=== PATIENT | female | born 1970 | race Caucasian/White ===

== ENCOUNTER 2023-01-01 06:48 | Day surgery (SDC) | payer OTHER ==
[2022-12-31 09:26] VITALS: BMI 43.8
--- NOTE | 2023-01-01 07:02 | P.GSHP ---
History of Present Illness H&P Date: 01/01/23 CHIEF COMPLAINT: GERD and colon screen HISTORY OF PRESENT ILLNESS: The patient is a 52-year-old female who presents with gastroesophageal reflux disease and need for colon screen. Upper and lower endoscopy were offered for further evaluation and management. PAST MEDICAL HISTORY: Please see list. PAST SURGICAL HISTORY: Please see list. MEDICATIONS: Please see list. ALLERGIES: Please see list. SOCIAL HISTORY: No illicit drug use FAMILY HISTORY: No reports of Crohn disease or ulcerative colitis. REVIEW OF ORGAN SYSTEMS: CONSTITUTIONAL: No reports of fevers or chills. GI: Denies any blood in stools or constipation. PHYSICAL EXAM: VITAL SIGNS: Stable GENERAL: Well-developed pleasant in no acute distress. HEENT: No scleral icterus. Extraocular movements grossly intact. Moist buccal mucosa. NECK: Supple without lymphadenopathy. CHEST: Unlabored respirations. Equal bilateral excursions. CARDIOVASCULAR: Regular rate and rhythm. Distal 2+ pulses. ABDOMEN: Soft, nondistended. MUSCULOSKELETAL: No clubbing, cyanosis, or edema. ASSESSMENT: 1. Gastroesophageal reflux disease 2. Colon screen. PLAN: 1. Recommend proceeding with an upper and lower endoscopy Past Medical History Past Medical History: Diabetes Mellitus, Hyperlipidemia, Hypertension Additional Past Medical History / Comment(s): SEASONAL ALLERGIES History of Any Multi-Drug Resistant Organisms: None Reported Past Surgical History: Cholecystectomy, Hernia Repair, Orthopedic Surgery, Uterine Ablation Additional Past Surgical History / Comment(s): RT foot surgery, BILAT carpal tunnel, Past Anesthesia/Blood Transfusion Reactions: Previous Problems w/ Anesthesia Additional Past Anesthesia/Blood Transfusion Reaction / Comment(s): HAD TOTAL BODY PAIN FOR DAYS AFTER UTERINE ABLATION 13 YEARS AGO Smoking Status: Former smoker - Past Family History Father Family Medical History: Cancer Mother Family Medical History: Cancer Medications and Allergies Home Medications Medication Instructions Recorded Confirmed Type ALPRAZolam [Xanax] 0.25 mg PO DAILY PRN 12/31/22 12/31/22 History Cholecalciferol [Vitamin D3 (25 100 mcg PO DAILY 12/31/22 12/31/22 History Mcg = 1000 Iu)] Escitalopram [Lexapro] 10 mg PO HS 12/31/22 12/31/22 History Loratadine [Claritin] 10 mg PO DAILY 12/31/22 12/31/22 History Meloxicam [Mobic] 15 mg PO DAILY 12/31/22 12/31/22 History Montelukast [Singulair] 10 mg PO HS 12/31/22 12/31/22 History Multivit with Calcium,Iron,Min 1 each PO DAILY 12/31/22 12/31/22 History [Women's Multivitamin] Olmesartan/Hydrochlorothiazide 1 each PO DAILY 12/31/22 12/31/22 History [Benicar Hct 40-12.5 mg Tablet] [place]-3/Dha/Epa/Fish Oil [Fish Oil 1 each PO DAILY 12/31/22 12/31/22 History 1,000 mg Softgel] Pioglitazone [Actos] 30 mg PO DAILY 12/31/22 12/31/22 History Rosuvastatin [Crestor] 20 mg PO HS 12/31/22 12/31/22 History metFORMIN HCL 1,000 mg PO BID 12/31/22 12/31/22 History sitaGLIPtin [Januvia] 100 mg PO DAILY 12/31/22 12/31/22 History Allergies Allergy/AdvReac Type Severity Reaction Status Date / Time No Known Allergies Allergy Verified 12/31/22 09:08
[2023-01-01] MEDS ORDERED: LACTATED RINGERS 1,000 ML IV SCH (07:10)
[2023-01-01] MEDS ORDERED: PROPOFOL 10 MG/ML 20 ML VIAL IV ONE (07:28)
[2023-01-01 07:29] LABS: Glucose,Whole Blood 132 mg/dL (70-110)
[2023-01-01] MEDS: LACTATED RINGERS 1,000 ML IV ONE ×2 (07:30→07:52)
[2023-01-01 07:32] VITALS: RESP 16; TEMP 97.6
--- NOTE | 2023-01-01 07:45 | P.PCN ---
Date of Procedure: 01/01/23 Description of Procedure: PREOPERATIVE DIAGNOSIS: Gastroesophageal reflux disease. Morbid obesity. POSTOPERATIVE DIAGNOSIS: Gastroesophageal reflux disease. Morbid obesity. Gastritis. Acute gastric ulcers OPERATION: Esophagogastroduodenoscopy with biopsies along the esophagus, antrum and duodenum SURGEON: Emelina Myers MD ANESTHESIA: MAC. INDICATIONS: The patient is a 52-year-old female who presents with reflux disease. Benefits and risks of the procedure were described. Informed consent was obtained. DESCRIPTION: The patient was brought into the endoscopy suite and laid in the left lateral decubitus position. An Olympus gastroscope was passed along the posterior oropharynx down to the distal esophagus where the squamocolumnar junction was encountered at 39 cm from the incisors. The stomach was entered and no bile reflux was found. Additional findings are listed below. Biopsies with cold forceps were obtained of the antrum. The first through third portion of the duodenum was examined. Retroflexion of the scope confirmed Hill grade 2 lower esophageal valve. The squamocolumnar junction demonstrated LA grade B erosive esophagitis. The stomach was desufflated. The patient tolerated the procedure well. FINDINGS: Squamocolumnar junction 39 cm from the incisors. Diaphragmatic hiatus at 39 cm. Hill grade 2 lower esophageal valve. LA grade A erosive esophagitis. Biopsies obtained Biopsies obtained of the duodenum. Chronic gastritis with biopsies obtained. RECOMMENDATIONS: Upper endoscopy as needed. Omeprazole and Carafate 2-4 weeks for acute gastric ulcer
--- NOTE | 2023-01-01 08:13 | P.PCN ---
Date of Procedure: 01/01/23 Description of Procedure: PREOPERATIVE DIAGNOSIS: Colonoscopy screening. POSTOPERATIVE DIAGNOSIS: Colonoscopy screening. Descending colon colitis OPERATION: Colonoscopy with cold forceps biopsies Colonoscopy to the cecum, ileocecal valve and appendiceal orifice. SURGEON: Emelina Myers MD. ANESTHESIA: MAC. INDICATIONS: The patient is a 52-year-old female who presents for colonoscopy screening. Benefits and risks were described and informed consent was obtained. DESCRIPTION OF PROCEDURE: The patient had undergone Sutab prep. The patient had been brought into the operating room and laid in the left lateral decubitus position. After adequate intravenous sedation, the rectum was examined with 2% lidocaine jelly. No external hemorrhoids were encountered. The rectal tone was within normal limits. No lesions were palpated in the rectal vault. An Olympus colonoscope was advanced until the cecum, ileocecal valve and appendiceal orifice were clearly viewed. The prep was excellent. Scattered diverticulosis was encountered. No colonic polyps were found. Ascending colitis was identified with biopsies obtained. Retroflexion of the scope demonstrated grade 2 internal hemorrhoids without active bleeding or inflammation. The colon was desufflated. The patient had tolerated the procedure well. Withdrawal time was over 6 minutes. FINDINGS: Aronchick preparation quality scale 1 (1-5) Internal hemorrhoids, grade 1 No external prolapsed hemorrhoids. No arteriovenous malformations. No adenomatous polyps. Descending colitis with biopsies obtained. RECOMMENDATIONS: Lower endoscopy in 5 years, 2027 Plan - Discharge Summary Discharge Rx Participant: No New Discharge Prescriptions: New Omeprazole [PriLOSEC] 40 mg PO DAILY #14 cap Sucralfate [Carafate] 1 gm PO BID #30 tablet Continue ALPRAZolam [Xanax] 0.25 mg PO DAILY PRN PRN Reason: Anxiety Pioglitazone [Actos] 30 mg PO DAILY Loratadine [Claritin] 10 mg PO DAILY Escitalopram [Lexapro] 10 mg PO HS Cholecalciferol [Vitamin D3 (25 Mcg = 1000 Iu)] 100 mcg PO DAILY metFORMIN HCL 1,000 mg PO BID Olmesartan/Hydrochlorothiazide [Benicar Hct 40-12.5 mg Tablet] 1 each PO DAILY sitaGLIPtin [Januvia] 100 mg PO DAILY Montelukast [Singulair] 10 mg PO HS Rosuvastatin [Crestor] 20 mg PO HS [place]-3/Dha/Epa/Fish Oil [Fish Oil 1,000 mg Softgel] 1 each PO DAILY Multivit with Calcium,Iron,Min [Women's Multivitamin] 1 each PO DAILY Discontinued Meloxicam [Mobic] 15 mg PO DAILY Discharge Medication List ALPRAZolam [Xanax] 0.25 mg PO DAILY PRN 12/31/22 [History] Cholecalciferol [Vitamin D3 (25 Mcg = 1000 Iu)] 100 mcg PO DAILY 12/31/22 [History] Escitalopram [Lexapro] 10 mg PO HS 12/31/22 [History] Loratadine [Claritin] 10 mg PO DAILY 12/31/22 [History] Montelukast [Singulair] 10 mg PO HS 12/31/22 [History] Multivit with Calcium,Iron,Min [Women's Multivitamin] 1 each PO DAILY 12/31/22 [History] Olmesartan/Hydrochlorothiazide [Benicar Hct 40-12.5 mg Tablet] 1 each PO DAILY 12/31/22 [History] [place]-3/Dha/Epa/Fish Oil [Fish Oil 1,000 mg Softgel] 1 each PO DAILY 12/31/22 [History] Pioglitazone [Actos] 30 mg PO DAILY 12/31/22 [History] Rosuvastatin [Crestor] 20 mg PO HS 12/31/22 [History] metFORMIN HCL 1,000 mg PO BID 12/31/22 [History] sitaGLIPtin [Januvia] 100 mg PO DAILY 12/31/22 [History] Omeprazole [PriLOSEC] 40 mg PO DAILY #14 cap 01/01/23 [Rx] Sucralfate [Carafate] 1 gm PO BID #30 tablet 01/01/23 [Rx] Follow up Appointment(s)/Referral(s): Emelina Myers MD [STAFF PHYSICIAN] - 02/03/23 1:00 pm Patient Instructions/Handouts: Microscopic Colitis (DC), Peptic Ulcer (DC) Activity/Diet/Wound Care/Special Instructions: Repeat colonoscopy in 5 years, 2027 Discharge Disposition: HOME SELF-CARE
[2023-01-01 10:40] VITALS: BP 103/74; PULSE 82
== END 2023-01-01 08:47 | disposition home or self-care (01) ==
LOC: ORWHC2ENDO 06:48
PROVIDERS: ATTEND Surgery Plastic and Reconstructive Surgery
DX: Z12.11 Encounter for screening for malignant neoplasm of colon (principal); K29.50 Unspecified chronic gastritis without bleeding; K21.00 Gastro-esophageal reflux disease with esophagitis, without bleeding; K25.3 Acute gastric ulcer without hemorrhage or perforation; K22.10 Ulcer of esophagus without bleeding; K64.0 First degree hemorrhoids; K52.89 Other specified noninfective gastroenteritis and colitis; E11.9 Type 2 diabetes mellitus without complications; E66.01 Morbid (severe) obesity due to excess calories; E78.5 Hyperlipidemia, unspecified; I10 Essential (primary) hypertension; Z90.49 Acquired absence of other specified parts of digestive tract; Z98.890 Other specified postprocedural states; G56.03 Carpal tunnel syndrome, bilateral upper limbs; Z87.891 Personal history of nicotine dependence; Z79.1 Long term (current) use of non-steroidal anti-inflammatories (NSAID); Z79.84 Long term (current) use of oral hypoglycemic drugs; Z79.899 Other long term (current) drug therapy; Z68.41 Body mass index [BMI] 40.0-44.9, adult
CPT/HCPCS: 81025; 88305; 45380; 43239; J2704

== ENCOUNTER → 2024-08-01 | Outpatient (CLI) | payer OTHER ==
--- NOTE | 2024-08-01 14:05 | XR ---
EXAMINATION TYPE: XR lumbar spine 2 or 3V DATE OF EXAM: 08/01/2024 CLINICAL HISTORY: M51.632 TECHNIQUE: Three views of the lumbar spine are submitted. COMPARISON: MRI lumbar spine 09/24/2015 FINDINGS: There are 5 lumbar type vertebral bodies identified. The lumbar spine shows satisfactory alignment w ithout evidence of acute fracture or dislocation. Vertebral body heights are within normal limits. Multilevel disc space narrowing with endplate sclerosis. Most pronounced at L5-S1. Multilevel facet a rthropathy. The overlying soft tissue appears unremarkable. IMPRESSION: 1. No acute fracture or dislocation is seen in the lumbar spine. 2. Mild multilevel degenerative disc disease with moderate multilevel facet arthropathy. [facility], , 08/01/2024 2:03 PM
== END | disposition home or self-care (01) ==
LOC: RADXRMAIN 13:47
PROVIDERS: ATTEND Neurological Surgery
DX: M51.362 Other intervertebral disc degeneration, lumbar region with discogenic back pain and lower extremity pain (principal); M47.816 Spondylosis without myelopathy or radiculopathy, lumbar region
CPT/HCPCS: 72100